=== PATIENT | male | born 1965 | race Caucasian/White ===

== ENCOUNTER 2017-12-03 12:28 | Day surgery (SDC) | payer BC ==
[~2017-12-03] VITALS: Ht 180.3 cm; Wt 118.9 kg
[~2017-12-03 12:28] MED LIST: COZAAR50 MG PO; MOTRIN800 MG PO; NEURONTIN300 MG PO; TYLENOL WITH C1 EACH PO; ULTRAM50 MG PO; ZYLOPRIM100 MG PO
[2017-12-03 13:06] VITALS: BP 154/88
[2017-12-03 20:10] VITALS: BP 133/82
[2017-12-03 21:06] VITALS: BP 139/93
== END 2017-12-03 21:25 | disposition home or self-care (01) ==
LOC: SDC 12:28 → 2SOUTH 18:49 → ENRESERV 18:49 → 2SOUTH 21:25
PROC: 0RG20A0 Fusion of 2 or more Cervical Vertebral Joints with Interbody Fusion Device, Anterior Approach, Anterior Column, Open Approach (ICD-10-PCS; principal; 2017-12-03)
DX: M50.122 Cervical disc disorder at C5-C6 level with radiculopathy (principal); I10 Essential (primary) hypertension; M48.02 Spinal stenosis, cervical region; Z87.891 Personal history of nicotine dependence
CPT/HCPCS: 72020; 76000; C1713; C1821; G0378; J0690; J1100; J1170; J1885; J2250; J2405; J2710; J3010